=== PATIENT | male | born 1955 | race American Indian/Alaskan Native ===

== ENCOUNTER 2016-08-17 09:00 | Observation (INO) | payer OTHER ==
--- NOTE | 2016-08-17 09:51 | PDOC ---
History of Present Illness <Yahaira Bob - Last Filed: 08/17/16 12:29> - History of Present Illness Initial Comments: 08/17/16 10:03 CHIEF COMPLAINT: SOB HISTORY OF PRESENT ILLNESS: 61 yo M with hx of HTN, HLD presents to ED with cough x 1 week and SOB x 1 day. Patient states he has had seasonal allergies for the last week which is "triggering asthma for the first time," with symptoms of productive cough, runny nose, and itchy/watery eyes. He states that he has been seen by his PMD MD Efra Still and was prescribed Seroflo and Advair, with little relief. He reports having SOB starting this morning. He denies chest pain, fever, chills, nausea, vomiting, diarrhea. No recent travel or sick contacts. PAST MEDICAL HISTORY: Denies past medical history FAMILY HISTORY: Denies SOCIAL HISTORY: Denies tobacco, alcohol, illicit drug use. SURGICAL HISTORY: Denies ALLERGIES: No known drug allergies REVIEW OF SYSTEMS General/Constitutional: Denies fever or chills. Denies weakness, weight change. HEENT: Denies change in vision. Denies ear pain or discharge. Denies sore throat. Cardiovascular: Denies chest pain or shortness of breath. Respiratory: Productive cough x 1 week, wheezing today. Denies hemoptysis. Gastrointestinal: Denies nausea, vomiting, diarrhea. Denies rectal bleeding. Genitourinary: Denies dysuria, frequency, or change in urination. Musculoskeletal: Denies joint or muscle swelling or pain. Denies neck or back pain. Skin: Denies rash or easy bruising. Neurologic: Denies headache, vertigo, loss of consciousness, or loss of sensation. PHYSICAL EXAM General Appearance: Well-appearing, appropriately dressed. No apparent distress. HEENT: EOMI, PERRLA, normal voice, TMs normal, pharynx normal. No conjunctival pallor. No photophobia, scleral icterus. Neck: Supple. Trachea midline. No tenderness, rigidity, carotid bruit, stridor , lymphadenopathy, or thyromegaly. Respiratory/Chest: Scattered wheezing to lungs b/l. No chest tenderness, respiratory distress, accessory muscle use. No crackles, rales, rhonchi, stridor , wheezing, dullness Cardiovascular: RRR. S1, S2. Gastrointestinal/Abdominal: Normal bowel sounds. Abdomen soft, non-distended. No tenderness or rebound tenderness. No organomegaly, pulsatile mass, guarding , hernia, hepatomegaly, splenomegaly. Musculoskeletal/Extremities: Normal inspection. FROM of all extremities, normal capillary refill. Pelvis Stable. No CVA tenderness. No tenderness to extremities, pedal edema, swelling, erythema or deformity. Integumentary: Appropriate color, dry, warm. 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 Fully oriented, alert. Appropriate mood/affect. Motor strength 5/5. No appreciable EOM palsy, facial droop or sensory deficit. <Sandra Vance - Last Filed: 08/17/16 13:57> - General Stated Complaint: SOB Time Seen by Provider: 08/17/16 09:34 Past History <Yahaira Bob - Last Filed: 08/17/16 12:29> - Past Medical History Diabetes: Yes (DIET CONTROLLED) HTN: Yes Hypercholesterolemia: Yes - Psycho/Social/Smoking Cessation Hx Suicidal Ideation: No Smoking History: Unknown if ever smoked Have you smoked in the past 12 months: No Hx Alcohol Use: No Drug/Substance Use Hx: No Substance Use Type: None Hx Substance Use Treatment: No <Sandra Vance - Last Filed: 08/17/16 13:57> - Past Medical History Allergies/Adverse Reactions: Allergies Allergy/AdvReac Type Severity Reaction Status Date / Time No Known Drug Allergies Allergy Verified 08/17/16 09:25 Home Medications: Ambulatory Orders Losartan Potassium 25 mg PO DAILY 03/01/15 Metoprolol Succinate [Toprol XL -] 25 mg PO DAILY 03/01/15 Albuterol 0.083% Nebulizer Jaja [Ventolin 0.083% Nebulizer Soln -] 1 neb NEB Q6H PRN #3 vial 08/17/16 Albuterol Sulfate Inhaler - [Ventolin HFA Inhaler -] 1 - 2 inh PO QID PRN #1 inhaler 08/17/16 Albuterol Sulfate Inhaler - [Ventolin Hfa Inhaler -] 1 - 2 inh PO Q4H 08/17/16 Prednisone [Deltasone] 40 mg PO DAILY #14 tablet 08/17/16 *Physical Exam - Vital Signs Last Vital Signs Temp Pulse Resp BP Pulse Ox 98 F 74 20 145/77 100 08/17/16 11:28 08/17/16 11:28 08/17/16 11:28 08/17/16 11:28 08/17/16 09:06 <Yahaira Bob - Last Filed: 08/17/16 12:29> - Vital Signs Last Vital Signs Temp Pulse Resp BP Pulse Ox 98.6 F 89 19 154/89 100 08/17/16 09:06 08/17/16 09:06 08/17/16 09:06 08/17/16 09:06 08/17/16 09:06 <Sandra Vance - Last Filed: 08/17/16 13:57> ED Treatment Course - LABORATORY CBC & Chemistry Diagram: 08/17/16 10:24 08/17/16 10:24 - ADDITIONAL ORDERS Additional order review: Laboratory Results 08/17/16 10:24 Sodium 140 Potassium 4.7 Chloride 106 Carbon Dioxide 26 Anion Gap 8 BUN 16 Creatinine 1.1 Creat Clearance w eGFR > 60 Random Glucose 120 H Calcium 9.1 Total Bilirubin 0.3 AST 39 H ALT 28 Alkaline Phosphatase 55 Total Protein 7.7 Albumin 4.3 08/17/16 10:24 RBC 4.77 MCV 88.8 MCHC 33.8 RDW 12.9 MPV 7.6 Neutrophils % 66.3 Lymphocytes % 21.3 Monocytes % 6.2 Eosinophils % 5.6 H Basophils % 0.6 - Medications Given in the ED: ED Medications Discontinued Medications Generic Name Dose Route Start Last Admin Trade Name Freq PRN Reason Stop Dose Admin Albuterol/Ipratropium 1 amp 08/17/16 10:33 08/17/16 10:37 Duoneb - NEB 08/17/16 10:34 1 amp ONCE ONE Administration Dexamethasone Sodium Phosphate 10 mg 08/17/16 10:01 08/17/16 10:33 Decadron Injection - IVPUSH 08/17/16 10:02 10 mg ONCE ONE Administration <Yahaira Bob - Last Filed: 08/17/16 12:29> - LABORATORY CBC & Chemistry Diagram: 08/17/16 10:24 08/17/16 10:24 <Sandra Vance - Last Filed: 08/17/16 13:57> Medical Decision Making - Medical Decision Making 08/17/16 12:29 61 yo male no pmhx h/o seasonal allergeis. here with c/o wheezing. sob and cough. states has been having allergies for one month. was seeing pcp. taking allergy medication. no recent travel. no leg swelling. no rash. no h/o pe or dvt. no chest pain. on exam wheezing bilaterally. decreasd air flow. RRR no mmr/g. skin no rash. plan nebs. peak flow steroids reassess. jose <Yahaira Bob - Last Filed: 08/17/16 12:29> - Medical Decision Making 08/17/16 11:32 61 yo M with hx of HTN, HLD presents to ED with SOB x 1 day. -CBC, CMP -EKG, CXR -Duoneb -Decadron 10 mg IV 08/17/16 12:48 Patient received Duoneb x 3 but continues to c/o tightness to chest. Patient's O2 sat 99% on RA. Will send D-dimer to r/o PA. Peak flow rate: 250 Will admit to obs for continued SOB s/p nebs and decadron. D-dimer negative. Discussed case with patient's PMD Efra, who agrees to admit patient for observation. Discussed case with hospitalist attending MD Gonzalez, who accepts patient to inpatient services. 08/17/16 13:52 Patient refuses admission for obs. States he "just wants albuterol refill" for neb and inhaler and requests prednisone rx. Advised patient that he should remain here for observation due to persistent SOB s/p multiple treatments and steroids, patient refused. Patient signed out AMA. <Sandra Vance - Last Filed: 08/17/16 13:57> *DC/Admit/Observation/Transfer <Yahaira Bob - Last Filed: 08/17/16 12:29> - Discharge Dispostion Admit: Yes <Sandra Vance - Last Filed: 08/17/16 13:57> Diagnosis at time of Disposition: Shortness of breath - Discharge Dispostion Disposition: AGAINST MEDICAL ADVICE - Prescriptions Prescriptions: Prednisone [Deltasone] 40 mg PO DAILY #14 tablet Albuterol 0.083% Nebulizer Jaja [Ventolin 0.083% Nebulizer Soln -] 1 neb NEB Q6H PRN #3 vial PRN Reason: Short Of Breath/Wheezing Albuterol Sulfate Inhaler - [Ventolin HFA Inhaler -] 1 - 2 inh PO QID PRN #1 inhaler PRN Reason: Shortness Of Breath - Referrals Referrals: Cheko Kraus MD [Primary Care Provider] -
[2016-08-17] MEDS ORDERED: DEXAMETHASONE SOD PHOSPHATE 10 MG/1 ML VIAL IVPUSH ONE (10:01)
[2016-08-17] MEDS ORDERED: DEXAMETHASONE SOD PHOSPHATE 10 MG/1 ML VIAL ONE (10:15)
[2016-08-17] MEDS ORDERED: ALBUTEROL SO4 2.5/IPRATROPIUM 0.5 INH SOL 3 ML VIAL.NEB. NEB ONE ×4 (10:33→12:41)
[2016-08-17 10:52] LABS: BASOPHIL 0.6 % (0-2.0)
[2016-08-17 11:01] LABS: EOSINOPHIL 5.6 % (0-4.5); MCHC 33.8 g/dl (32.0-35.9); MEAN CELL VOLUME 88.8 fl (80-96); MEAN PLT VOLUME 7.6 fl (7.5-11.1); NEUTROPHILS 66.3 % (42.8-82.8); PLATELET COUNT 218 K/MM3 (134-434); RDW 12.9 % (11.9-15.9); WHITE BLOOD COUNT 9.2 K/mm3 (4.0-10.0)
[2016-08-17 11:29] LABS: ALBUMIN 4.3 g/dl (3.4-5.0); ANION GAP 8 (8-16); BILIRUBIN,TOTAL 0.3 mg/dL (0.2-1.0); CALCIUM 9.1 mg/dL (8.5-10.1); CO2 26 mmol/L (21-32); COCKROFT - GAULT 60.47; CREATININE 1.1 mg/dL (0.7-1.3); GLUCOSE,RANDOM 120 mg/dL (74-106); SGPT/ALT 28 U/L (12-78); TOT PROT 7.7 g/dl (6.4-8.2)
[2016-08-17 11:30] LABS: ALK PHOS 55 U/L (45-117)
[2016-08-17 11:38] LABS: SGOT/AST 39 U/L (15-37)
[2016-08-17] MEDS ORDERED: ALBUTEROL SO4 0.083% IH SOL 2.5 MG/3 ML VIAL.NEB. NEB PRN (14:46)
[2016-08-17] MEDS: PANTOPRAZOLE 40 MG TABLET (FP) PO SCH (14:55)
--- NOTE | 2016-08-17 15:00 | HP ---
CHIEF COMPLAINT:Shortness of breath PCP: Efra Silverman HISTORY OF PRESENT ILLNESS: 61M PMH of HTN, HLD, seasonal allergies presents to ED with a chief complaint of cough and shortness of breath for 1 week. Per the patient he went to see his PMD and was given advair and seroflo but he did not get any better. Patient states he has seasonal allergies and his asthma is triggered from "pollen season ". Per the patient he gets asthma exacerbation once a year usually during the end July until early September when pollen is at its highest otherwise his asthma is never active. He endorses cough shortness of breath watery eyes and runny nose for 1 week which is somewhat relieved by zyrtec and wheezing which started this morning. He denies chest pain, fever, chills, nausea, vomiting, diarrhea or any urinary symptoms. ER course was notable for: (1)CXR (2)Nebulizers (3)Decadron Recent Travel:Denies PAST MEDICAL HISTORY:HTN HLD seasonal allergies PAST SURGICAL HISTORY:Denies Social History: Smoking:Denies Alcohol:Denies Drugs: Denies Allergies No Known Drug Allergies Allergy (Verified 08/17/16 09:25) HOME MEDICATIONS: Home Medications Medication Instructions Recorded Losartan Potassium 25 mg PO DAILY 03/01/15 Metoprolol Succinate [Toprol XL -] 25 mg PO DAILY 03/01/15 Albuterol Sulfate Inhaler - 1 - 2 inh PO Q4H 08/17/16 [Ventolin Hfa Inhaler -] Cetirizine HCl [Zyrtec -] 10 mg PO DAILY PRN 08/17/16 Ezetimibe [Zetia] 10 mg PO DAILY 08/17/16 Fluticasone/Salmeterol [Advair 1 each IH DAILY 08/17/16 250-50 Diskus] REVIEW OF SYSTEMS CONSTITUTIONAL: Absent: fever, chills, diaphoresis, generalized weakness, malaise, loss of appetite, weight change HEENT: Absent: nasal congestion, throat pain, throat swelling, difficulty swallowing, mouth swelling, ear pain, eye pain, visual changes Present: rhinorrhea watery eyes CARDIOVASCULAR: Absent: chest pain, syncope, palpitations, irregular heart rate, lightheadedness , peripheral edema RESPIRATORY: Absent: dyspnea with exertion, orthopnea, stridor, hemoptysis Present: cough, shortness of breath, wheezing GASTROINTESTINAL: Absent: abdominal pain, abdominal distension, nausea, vomiting, diarrhea, constipation, melena, hematochezia GENITOURINARY: Absent: dysuria, frequency, urgency, hesitancy, hematuria, flank pain, genital pain MUSCULOSKELETAL: Absent: myalgia, arthralgia, joint swelling, back pain, neck pain SKIN: Absent: rash, itching, pallor HEMATOLOGIC/IMMUNOLOGIC: Absent: easy bleeding, easy bruising, lymphadenopathy, frequent infections ENDOCRINE: Absent: unexplained weight gain, unexplained weight loss, heat intolerance, cold intolerance NEUROLOGIC: Absent: headache, focal weakness or paresthesias, dizziness, unsteady gait, seizure, mental status changes, bladder or bowel incontinence PSYCHIATRIC: Absent: anxiety, depression, suicidal or homicidal ideation, hallucinations. PHYSICAL EXAMINATION GENERAL: Awake, alert, and fully oriented, in no acute distress. EYES: Pupils equal, round and reactive to light, extraocular movements intact EARS, NOSE, THROAT: Moist mucous membranes. NECK: Normal range of motion, supple without JVD LUNGS: Breath sounds equal, mild diffuse wheezing bilaterally. No accessory muscle use. no distress. saturating well. speaking in full sentences HEART: Regular rate and rhythm, normal S1 and S2 without murmur, rub or gallop. ABDOMEN: Soft, nontender, not distended, normoactive bowel sounds, no guarding, no rebound. MUSCULOSKELETAL: No CVA tenderness. UPPER EXTREMITIES: warm, well-perfused. No peripheral edema. LOWER EXTREMITIES:warm, well-perfused. No calf tenderness. No peripheral edema. NEUROLOGICAL: Cranial nerves II-XII grossly intact. Normal speech. Normal gait. PSYCHIATRIC: Cooperative. Good eye contact. Appropriate mood and affect. SKIN: Warm, dry, normal turgor, no rashes or lesions noted, normal capillary refill. CXR: clear ASSESSMENT/PLAN: 61M with history of HTN HLD and seasonal allergies presents to the hospital with acute exacerbation of asthma. Acute exacerbation of asthma: patient states he usually gets asthma exacerbation every year around this time of year when pollen is high place on observation solumedrol 40mg IV BID Daily peak flow-was 250 in the ED after 3 nebulizer treatments continue advair duonebs standing albuterol nebs PRN check rapid influenza swab HTN: well controlled at this time continue home dose of losartan continue home dose of metoprolol HLD: continue Zetia FEN: no IVF no electrolyte issues low sodium diet PPx: HSQ/SCDs GI PPx neded while on steroids-protonix 40mg PO daily no PT consult needed early ambulation Case discussed with attending Dr. Gonzalez Visit type - Emergency Visit Emergency Visit: Yes ED Registration Date: 08/17/16 Care time: The patient presented to the Emergency Department on the above date and was hospitalized for further evaluation of their emergent condition. - New Patient This patient is new to me today: Yes Date on this admission: 08/17/16 - Critical Care Critical Care patient: No
[2016-08-17] MEDS ORDERED: methylPREDNISolone NA SUCC 125 MG/2 ML VIAL ONE (16:07)
[2016-08-17] MEDS: methylPREDNISolone NA SUCC 40 MG/1 ML VIAL IVPB SCH ×2 (16:11→21:39)
--- NOTE | 2016-08-17 17:20 | EKG ---
Test Reason : Blood Pressure : / mmHG Vent. Rate : 085 BPM Atrial Rate : 085 BPM P-R Int : 130 ms QRS Dur : 092 ms QT Int : 374 ms P-R-T Axes : 078 058 033 degrees QTc Int : 445 ms NORMAL SINUS RHYTHM NORMAL ECG WHEN COMPARED WITH ECG OF 14-AUG-2004 17:03, QRS DURATION HAS DECREASED QT HAS LENGTHENED Confirmed by KASSANDRA MENA MD ([id number]) on 08/17/2016 5:20:20 PM Referred By: Confirmed By:KASSANDRA MENA MD
[2016-08-17 17:36] VITALS: BMI 23.3
--- NOTE | 2016-08-17 17:38 | PN ---
Teaching Attending Note Name of Resident: Tylor Menezes ATTENDING PHYSICIAN STATEMENT I saw and evaluated the patient. I reviewed the resident's note and discussed the case with the resident. I agree with the resident's findings and plan as documented. SUBJECTIVE: CC: SOB and wheezing HPI: developed SOb and wheezing , denies any fever or chills, has no runny nose , and no sputum production . has no CP. he has been developing asthma like sx /bronchospasm every year in spring time for past 5 years OBJECTIVE: NAD CV: RRR Lungs: good air entry . wheezing anteriorly . ext : no edema ABd :soft, NT, ND , NL BS ASSESSMENT AND PLAN: 61 y/o man with h/o HTN, HLP, recurrent episodes of bronchospasm, he presented with SOB and wheezing 1- asthma/ reactive airway disease. steroids Nebs advair flu swab possible dc tomorrow
[2016-08-17] MEDS: HEPARIN NA (PORCINE) 5,000 UNITS/ML 1ML VIAL SQ SCH (21:39)
[2016-08-17] MEDS ORDERED: FLUTICASONE/SALMETEROL 100 MCG/50 MCG DISKUS IH SCH (22:00)
[2016-08-17] MEDS: ALBUTEROL SO4 2.5/IPRATROPIUM 0.5 INH SOL 3 ML VIAL.NEB. NEB SCH (23:01)
[2016-08-18] MEDS: ALBUTEROL SO4 2.5/IPRATROPIUM 0.5 INH SOL 3 ML VIAL.NEB. NEB SCH ×2 (06:25→11:14)
[2016-08-18] MEDS: HEPARIN NA (PORCINE) 5,000 UNITS/ML 1ML VIAL SQ SCH (06:30)
[2016-08-18] MEDS ORDERED: PT OWN MED DRAWER 7, Y5N ONE (09:06)
[2016-08-18] MEDS: PANTOPRAZOLE 40 MG TABLET (FP) PO SCH (09:10)
[2016-08-18] MEDS: methylPREDNISolone NA SUCC 40 MG/1 ML VIAL IVPB SCH (09:10)
[2016-08-18] MEDS ORDERED: EZETIMIBE 10 MG TABLET (FP) PO SCH (10:00)
[2016-08-18] MEDS ORDERED: METOPROLOL SUCCINATE 25 MG TAB.SR.24H (FP) PO SCH (10:00)
[2016-08-18] MEDS ORDERED: LOSARTAN POTASSIUM 25 MG TABLET PO SCH (10:00)
--- NOTE | 2016-08-18 13:39 | DS ---
Physical Exam: SUBJECTIVE: Patient seen and examined at bedside. No new complaints. No overnight events. Breathing is much better and eager to go home. Denies CP, RODRIGUEZ, SOB, palpitations, abd. pain, N/V. OBJECTIVE: Vital Signs Period Temp Pulse Resp BP Sys/Russo Pulse Ox Last 24 Hr 97.6 F-98.6 F 72-84 20-20 114-145/54-74 92-100 PHYSICAL EXAM GENERAL: The patient is awake, alert, and fully oriented, in no acute distress. HEAD: Normal with no signs of trauma. EYES:sclera anicteric, conjunctiva clear. ENT: Ears normal, nares patent, moist mucous membranes. NECK: supple. LUNGS: Breath sounds equal, minimal wheezes bilat. , no crackles, no accessory muscle use. HEART: Regular rate and rhythm, S1, S2 without murmur, rub or gallop. ABDOMEN: Soft, nontender, nondistended, normoactive bowel sounds, no guarding, no rebound EXTREMITIES: 2+ pulses, warm, well-perfused, no edema. NEUROLOGICAL: Normal speech, gait not observed. PSYCH: Normal mood, normal affect. SKIN: Warm, dry, normal turgor, no rashes or lesions noted. LABS Laboratory Tests 08/17/16 08/17/16 08/17/16 10:24 10:24 12:51 WBC 9.2 RBC 4.77 Hgb 14.3 Hct 42.3 MCV 88.8 MCHC 33.8 RDW 12.9 Plt Count 218 MPV 7.6 Neutrophils % 66.3 Lymphocytes % 21.3 Monocytes % 6.2 Eosinophils % 5.6 H Basophils % 0.6 D-Dimer < 200 Sodium 140 Potassium 4.7 Chloride 106 Carbon Dioxide 26 Anion Gap 8 BUN 16 Creatinine 1.1 Creat Clearance w eGFR > 60 Random Glucose 120 H Calcium 9.1 Total Bilirubin 0.3 AST 39 H ALT 28 Alkaline Phosphatase 55 Total Protein 7.7 Albumin 4.3 08/18/2016 Peak flow - 300 HOSPITAL COURSE: 61M PMH of HTN, HLD, seasonal allergies presented to ED with a chief complaint of cough and shortness of breath for 1 week. Per the patient he went to see his PMD and was given advair and seroflo but he did not get any better. Patient states he has seasonal allergies and his asthma is triggered from "pollen season ". Per the patient he gets asthma exacerbation once a year usually during the end July until early September when pollen is at its highest otherwise his asthma is never active. He endorses cough shortness of breath watery eyes and runny nose for 1 week which is somewhat relieved by zyrtec and wheezing which started this morning. He denied chest pain, fever, chills, nausea, vomiting, diarrhea or any urinary symptoms. ER course was notable for: (1)CXR (2)Nebulizers (3)Decadron Detailed hospital course as below in problem list. Date of Admission:08/17/16 Date of Discharge: 08/18/16 Minutes to complete discharge: 45 Discharge Summary Reason For Visit: SHORTNESS OF BREATH Current Active Problems Shortness of breath (Acute) Condition: Stable - Instructions Referrals: Cheko Kraus MD [Primary Care Provider] - - Home Medications Comprehensive Discharge Medication List: Ambulatory Orders Losartan Potassium 25 mg PO DAILY 03/01/15 Metoprolol Succinate [Toprol XL -] 25 mg PO DAILY 03/01/15 Albuterol 0.083% Nebulizer Jaja [Ventolin 0.083%] 1 neb NEB Q4H PRN 08/17/16 Albuterol Sulfate Inhaler - [Ventolin Hfa Inhaler -] 1 - 2 inh PO Q4H 08/17/16 Cetirizine HCl [Zyrtec -] 10 mg PO DAILY PRN 08/17/16 Ezetimibe [Zetia] 10 mg PO DAILY 08/17/16 Fluticasone/Salmeterol [Advair 250-50 Diskus] 1 each IH DAILY 08/17/16 Problem List - Problems (1) Asthma attack Assessment/Plan: * Given Duonebs standing and PRN * Solumedrol 40mg IV BID * Symbicort 1 puff daily * Flu swab (-) * Negative CXR * Breathing improved significantly * Peak flow 250-->300 * Stable for discharge. * Will send home with advair, tapered steroids, and albuterol inh. (2) HTN (hypertension) Assessment/Plan: * Losartan Potassium (Cozaar -) 25 mg PO * Metoprolol Succinate (Toprol Xl -) 25 mg PO * Continue upon discharge. (3) HLD (hyperlipidemia) Assessment/Plan: * Ezetimibe (Zetia -) 10 mg PO DAILY SUZANNE (4) DVT prophylaxis Assessment/Plan: * Heparin 5000Units TID This patient is new to me today: Yes Date on this admission: 08/18/16 Emergency Visit: Yes ED Registration Date: 08/17/16 Care time: The patient presented to the Emergency Department on the above date and was hospitalized for further evaluation of their emergent condition. Critical Care patient: No - Discharge Referral Referred to [facility] Med P.C.: No
--- NOTE | 2016-08-18 14:17 | PN ---
Teaching Attending Note Name of Resident: René Mancini ATTENDING PHYSICIAN STATEMENT I saw and evaluated the patient. I reviewed the resident's note and discussed the case with the resident. I agree with the resident's findings and plan as documented. SUBJECTIVE: no fever or chills, breathing is much better , has no cough. OBJECTIVE: NAD CV: RRR Lungs: good air entry,minimal wheezing ext : no edema ASSESSMENT AND PLAN: 61 y/o man with h/o HTN, HLP, recurrent episodes of bronchospasm, he presented with SOB and wheezing 1- asthma/ reactive airway disease. much improved cont steroid taper , switcxh to prednisone cont inhalers as out pt f/u with PCP. rapid flu neg dc home today
[2016-08-18 14:49] VITALS: BP 116/58; PULSE 78; TEMP 98.3
== END 2016-08-18 14:15 | disposition home or self-care (01) ==
LOC: JER 09:00 → UNDOADMOB 13:17 → INTOOBSV 13:17 → JERBED 13:17 → J6S 18:25
PROVIDERS: ADMIT Internal Medicine; ATTEND Internal Medicine
PROC: 3E0333Z Introduction of Anti-inflammatory into Peripheral Vein, Percutaneous Approach (ICD-10-PCS; principal; 2016-08-17)
PROC: 3E033NZ Introduction of Analgesics, Hypnotics, Sedatives into Peripheral Vein, Percutaneous Approach (ICD-10-PCS; 2016-08-17)
PROC: 3E013GC Introduction of Other Therapeutic Substance into Subcutaneous Tissue, Percutaneous Approach (ICD-10-PCS; 2016-08-17)
PROC: 3E0F7GC Introduction of Other Therapeutic Substance into Respiratory Tract, Via Natural or Artificial Opening (ICD-10-PCS; 2016-08-17)
DX: J45.901 Unspecified asthma with (acute) exacerbation (principal); R06.02 Shortness of breath; I10 Essential (primary) hypertension; E78.5 Hyperlipidemia, unspecified; R73.03 Prediabetes; J30.2 Other seasonal allergic rhinitis
CPT/HCPCS: 36415; 71020-TC; 80053; 85025; 85379; 87254; 87804; 93005; 93010; 94640; 99283-25; G0378; J1644